=== PATIENT | female | born 1990 | race Caucasian/White ===

== ENCOUNTER 2017-09-19 14:11 | Emergency (ER) | payer OTHER ==
[~2017-09-19] VITALS: Ht 170.2 cm; Wt 75.7 kg
[~2017-09-19 14:11] MED LIST: AZITHROMYCIN PO; BENTYL10 MG PO; BENZONATATE100 MG PO; CHLORDIAZEPOXIDE5 MG PO; CLEOCIN100 MG/SUP RC; GIANVI 3 MG-0.1 EACH PO; GILDESS FE 1-21 EACH PO; HYDROCODON-ACE1 EACH PO; HYDROCODONE-AP1 EA12; IBUPROFEN400 MG PO; LORYNA 3 MG-0.1 EACH PO; NITROFURANTOIN100 MG PO; OMEPRAZOLE20 M1 PO; SPIRONOLACTONE25 MG PO; TYLENOL WITH C1 EACH PO; Z.0.CLINDAMYCIN HC15; ZOFRAN ODT4 MG PO
[2017-09-19 14:49] LABS: BILIRUBIN,URINE NEGATIVE (NEGATIVE); CLARITY,URINE CLEAR (CLEAR); COLOR,URINE YELLOW (YELLOW); KETONES,URINE NEGATIVE (NEGATIVE); LEUKOCYTE ESTERASE ,URINE NEGATIVE (NEGATIVE); NITRITE,URINE NEGATIVE (NEGATIVE); PROTEIN,URINE DIPSTICK NEGATIVE (NEGATIVE); URINE UROBILINOGEN 0.2 mg/dL (0.2 - 1)
[2017-09-19 15:09] LABS: EPITHELIAL CELLS,URINE FEW /LPF; MUCUS,URINE MODERATE (RARE); RBC,URINE 0-5 /HPF (0-5); WBC,URINE (MAN) 0-5 /HPF (0-5)
== END 2017-09-19 16:11 | disposition home or self-care (01) ==
LOC: ER 14:11
DX: O26.92 Pregnancy related conditions, unspecified, second trimester (principal); R10.2 Pelvic and perineal pain
CPT/HCPCS: 81001; 99282